=== PATIENT | female | born 1995 | race Caucasian/White ===

== ENCOUNTER 2021-05-04 08:30 | Emergency (ER) | payer OTHER, SELFPAY ==
--- NOTE | ~2021-05-04 | XR_ITS ---
XR toe 5th LT min 2V 05/04/2021 08:57 INDICATION: Left toe pain after injury PROCEDURE: 4 views left fifth toe COMPARISON: No prior studies for comparison. FINDINGS: Fracture, dislocation or subluxation is not identified. The soft tissues appear within norm al limits. No foreign bodies are identified. IMPRESSION: 1: NO ACUTE BONE OR JOINT ABNORMALITY IDENTIFIED. Reviewed, dictated and finalized at [facility] [employer]
[2021-05-04 08:41] VITALS: BP 121/68; PULSE 80; RESP 16; TEMP 36.9; O2SAT 99
[2021-05-04 08:59] VITALS: BP 100/65; PULSE 72; RESP 18; TEMP 36.9; O2SAT 100
[2021-05-04 09:05] VITALS: BP 100/65; PULSE 73; O2SAT 100
--- NOTE | 2021-05-04 09:17 | ED.LOWEXIN ---
HPI - Extremity Injury (Lower) General Chief Complaint: Extremity Injury, Lower Stated Complaint: toe pain Time Seen by Provider: 05/04/21 09:13 Source: patient Mode of arrival: ambulatory Limitations: no limitations History of Present Illness HPI Narrative: Kicked left small toe at the corner of a door accidentally yesterday. No other injuries Related Data Allergies Allergy/AdvReac Type Severity Reaction Status Date / Time No Known Allergies Allergy Unverified 03/13/15 13:35 Review of Systems Review of Systems: CONSTITUTIONAL: Denies fever, chills, or sweats. EYES: Denies visual changes, redness, or discharge. ENT: Denies rhinorrhea, congestion, sore throat, or otalgia. CARDIOVASCULAR: Denies chest pain, palpitations, or edema. RESPIRATORY: Denies cough or dyspnea. GASTROINTESTINAL: Denies abdominal pain, nausea, vomiting, or diarrhea. GENITOURINARY: Denies dysuria or hematuria. SKIN: Denies rash or itching. MUSCULOSKELETAL: Denies back pain, joint pain, or myalgia. NEUROLOGIC: Denies headache, numbness, or weakness. PSYCHIATRIC: Denies anxiety or depression. PMFSH Social History Social History Smoking status: Never smoker Alcohol intake: never Exam Narrative: General appearance: Well-developed, well-nourished Skin: Normal color Vascular: Normal peripheral pulses, normal capillary refill. Musculoskeletal: Left small toe is bruised, slightly swelling, no deformity, diffusely tender to touch Neurologic: Alert and oriented ?3, [employer] is normal as tested, no gross motor deficit Course Course Emergency Course: Stable Vital Signs Vital signs: Vital Signs Temperature 36.9 C 05/04/21 08:41 Pulse Rate 80 05/04/21 08:41 Respiratory Rate 16 05/04/21 08:41 Blood Pressure 121/68 05/04/21 08:41 Pulse Oximetry 99 05/04/21 08:41 Temperature 36.9 C 05/04/21 08:59 Pulse Rate 73 05/04/21 09:05 Respiratory Rate 18 05/04/21 08:59 Blood Pressure 100/65 05/04/21 09:05 Pulse Oximetry 100 05/04/21 09:05 MDM - Extremity Injury (Lower) MDM Narrative Medical decision making narrative: Left small toe contusion Critical Care Time Critical Care Time Critical Care Time: No Discharge Plan Discharge Clinical Impression: Contusion of small toe of left foot Patient Disposition: Home, Self-Care Condition: Stable Instructions: Antibiotic Form Additional Instructions: Return if symptoms are worsening , call your family physician for appointment, take Tylenol as as needed for aches and pain, continue home medications., Keep left foot elevated, do not put weight on the left foot, take Tylenol ibuprofen as needed for pain Follow-up/Referrals: PHYSICIAN,PLASTER DIE MAKER [Primary Care Provider] - Hemal Chin MD [Physician] -
--- NOTE | 2021-05-04 09:45 | PC.NURSE ---
Pt left without post op boot after informed her there is no fracture on xray and x- ray WNL, pt left without discharge paper work
== END 2021-05-04 09:45 | disposition home or self-care (01) ==
PROVIDERS: Emergency Provider Emergency Medicine
DX: S90.122A Contusion of left lesser toe(s) without damage to nail, initial encounter (principal); W22.8XXA Striking against or struck by other objects, initial encounter
CPT/HCPCS: 73660; 99283

== ENCOUNTER 2021-06-09 16:46 | Emergency (ER) | payer OTHER, SELFPAY ==
[2021-06-09 16:51] VITALS: BP 126/69; PULSE 92; RESP 18; TEMP 36.6; O2SAT 100
--- NOTE | 2021-06-09 17:48 | PC.NURSE ---
Patient walked out of ED without difficulty and in no distress.
== END 2021-06-10 04:29 | disposition left against medical advice (07) ==
DX: Z53.21 Procedure and treatment not carried out due to patient leaving prior to being seen by health care provider (principal)
CPT/HCPCS: 99199

== ENCOUNTER 2021-08-22 10:24 | Emergency (ER) | payer OTHER, SELFPAY ==
--- NOTE | ~2021-08-22 | CT_ITS ---
EXAMINATION: CT abdomen pelvis w con DATE: 08/22/2021 12:35 INDICATION: Right lower quadrant abdominal pain, nausea and vomiting for 3 days TECHNIQUE: Computed tomography (CT) of the abdomen and pelvis was performed with 100 CC Omnipaque 350 intravenous contrast. Automated exposure control and iterative reconstruction technique were employe d. Exam dose: 417.23 mGy-cm total exam DLP. COMPARISON: None. FINDINGS: The lung bases are clear. Normal heart size. No pericardial or pleural effusion. 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 The liver, gallbladder, bile ducts, pancreas, pancreatic duct and spleen are unremarkable. Normal morphology of the adrenal glands. There is a horseshoe kidney 8 mm cyst at the lower pole of the right kidney near the isthmus. Normal caliber of the abdominal aorta. No intraperitoneal or retroperitoneal or pelvic mass lesion or adenopathy or ascites. There is diffuse thickening of the urinary bladder wall, which may be due to under distention versus infection. The uterus and adnexal areas are unremarkable. Normal appendix. No bowel obstruction. No intraperitoneal free air. Included skeletal structures are unremarkable. IMPRESSION: Horseshoe kidney 8 mm right renal cyst Diffuse thickening of the urinary bladder wall which may be due to underdistention or cystitis Reviewed, dictated and finalized at [facility] Reviewed, dictated and finalized at [facility]EARCH[facility] IMPRESSION: Horseshoe kidney 8 mm right renal cyst Diffuse thickening of the urinary bladder wall which may be due to underdistent ion or cystitis
[2021-08-22 10:45] VITALS: BP 159/96; PULSE 69; RESP 18; TEMP 36.6; O2SAT 100
--- NOTE | 2021-08-22 10:52 | ECG_ITS ---
Measurements Intervals [place] Rate: 60 P: 43 IN: 169 QRS: 63 QRSD: 92 T: 11 QT: 422 QTc: 422 Interpretive Statements SINUS RHYTHM WITH SINUS ARRHYTHMIA NONSPECIFIC T-WAVE ABNORMALITY. ABNORMAL ECG NO PREVIOUS ECG AVAILABLE FOR COMPARISON Electronically Signed On 08-22-2021 14:03:23 [employer] MACHINE OPERATOR by Everette Martinez M.D.
--- NOTE | 2021-08-22 10:58 | PC.NURSE ---
while triaging pt, pt's eyes rolled back. sternal rubbed pt and she came back to. performed EKG. EDP aware of situation. pt taken back to room H3.
[2021-08-22 11:35] LABS: Basophils Percent Auto 0.4 % (0.2-1.2); Eosinophils Percent Auto 0.3 % (0-4.4); Hematocrit 38.6 % (37.0-47.0); Hemoglobin 13.4 g/dL (12.0-15.0); Immature Granulocyte Absolute 0.05 K/mm3 (0.00-0.031); Immature Granulocyte Percent A 0.5 % (0-0.5); Lymphocytes Absolute Auto 1.85 K/mm3 (0.9-3.2); Lymphocytes Percent Auto 17.3 % (18.3-44.2); Mean Corpuscular HGB Conc 34.7 g/dl (32-36); Mean Corpuscular Hemoglobin 30.5 pg (26-34); Mean Corpuscular Volume 87.7 fl (80-100); Mean Platelet Volume 10.3 fl (7.4-10.4); Monocytes Absolute Auto 0.6 K/mm3 (0.1-0.6); Monocytes Percent Auto 5.6 % (2.6-8.5); Neutrophils Absolute Auto 8.1 K/mm3 (1.3-6.7); Neutrophils Percent Auto 75.9 % (45.5-73.1); Platelet Count Result 267 k/mm3 (150-375); Red Cell Distribution Width 13.8 % (11.5-14.5); White Blood Count 10.7 K/mm3 (4.5-10.0)
[2021-08-22 11:40] LABS: Alanine Aminotransferase 16 U/L (4-35); Albumin Level 4.6 g/dL (3.5-5.1); Alkaline Phosphatase 78 U/L (38-126); Anion Gap 4 mmol/L (8-16); Aspartate Amino Transferase 27 U/L (14-36); Bilirubin,Total 0.5 mg/dL (0.2-1.3); Blood Urea Nitrogen 7 mg/dL (7-17); Calcium 9.3 mg/dL (8.4-10.2); Carbon Dioxide 22 mmol/L (22-30); Chloride 107 mmol/L (98-107); Estimated CRCL calculation 108 ml/min; Estimated Glomerular Filt Rate > 60; Glucose 97 mg/dL (65-110); Lipase 101 U/L (23-300); Potassium 3.2 mmol/L (3.4-5.0); Sodium 133 mmol/L (137-145)
[2021-08-22 11:54] LABS: Add Urine Microscopic? YES; Appearance Urine Clear (Clear); Bacteria Urine Trace /hpf; Bilirubin Urine Negative (Negative); Blood Urine Negative (Negative); Color Urine Yellow (Yellow); Glucose Urine UA Negative (Negative); Ketones Urine 1+ mg/dL (Negative); Leukocyte Esterase Ur 1+ LEU/UL (Negative); Mucus Urine Few /lpf; Nitrate Urine Negative (Negative); Protein Urine 1+ mg/dL (Negative); Specific Grav Ur 1.024 (1.001-1.035); Squamous Epithelial Cell Urine Many /hpf (Few); WBC Urine 31-50 /hpf
[2021-08-22] MEDS: SODIUM CHLORIDE 0.9% IV 1,000 ML 999 ML IV CONT (12:47)
[2021-08-22] MEDS: ONDANSETRON INJ 4 MG/2 ML VIAL IV PUSH (12:48)
--- NOTE | 2021-08-22 12:53 | ED.ABDPAIN ---
HPI - Abdominal Pain General Chief Complaint: Abdominal Pain Stated Complaint: vomiting/abd pain Time Seen by Provider: 08/22/21 11:56 History of Present Illness HPI narrative: Patient is a 26-year-old female who presents ER with with intermittent abdominal pain as well as nausea and vomiting. Ongoing for 3 days. Patient reports discomfort is mainly in the lower abdomen midline. No radiation but she also has discomfort in her upper abdomen especially when she vomits. No fevers or chills or sweats. Denies urinary frequency urgency or dysuria. No diarrhea. She has taken some Pepto-Bismol to help with her discomfort but she recently vomited that up. No known sick contacts. Related Data Allergies Allergy/AdvReac Type Severity Reaction Status Date / Time No Known Allergies Allergy Verified 08/22/21 11:08 Review of Systems Review of Systems: All systems reviewed & are unremarkable except as noted in HPI and below Constitutional: Constitutional: Denies chills, Reports fatigue and Denies fever(s) ENT: Denies nasal congestion and Denies sore throat Cardiovascular: Cardiovascular: Denies chest pain and Denies rapid heart rate Respiratory: Respiratory: Denies cough and Denies dyspnea Gastrointestinal: Gastrointestinal: Reports abdominal pain, Denies diarrhea, Reports nausea and Reports vomiting Genitourinary: Genitourinary: Denies hematuria, Denies nocturia, Denies dysuria and Denies flank pain PMFSH Past Medical History Medical History (Updated 08/22/21 @ 13:57 by Deandre Jalloh MD) Healthy female adult Surgical History Surgical History (Updated 08/22/21 @ 13:00 by Deandre Jalloh MD) No history of previous surgery Social History Social History (Updated 08/22/21 @ 13:01 by Deandre Jalloh MD) Smoking status: Never smoker Exam Narrative: GENERAL: Well-appearing, well-nourished, and in no acute distress. HEAD: Normocephalic, atraumatic. ENT: Mucous membranes moist. CHEST: Clear to auscultation. No respiratory distress. HEART: Regular rate and rhythm. Normal peripheral pulses. ABDOMEN: Soft, tender palpation right lower quadrant without guarding, nondistended, normal active bowel sounds. EXTREMITIES: Normal range of motion. No edema. SKIN: Warm, dry, no rash. NEURO: Alert and oriented x3. PSYCH: Normal mood and affect. Course Course Emergency Course: Patient informed results. Discharge home with antibiotics. Vital Signs Vital signs: Vital Signs Temperature 97.8 F 08/22/21 10:45 Pulse Rate 69 08/22/21 10:45 Respiratory Rate 18 08/22/21 10:45 Blood Pressure 159/96 H 08/22/21 10:45 Pulse Oximetry 100 08/22/21 10:45 Temperature 97.8 F 08/22/21 10:45 Pulse Rate 61 08/22/21 12:55 Respiratory Rate 14 08/22/21 12:55 Blood Pressure 131/80 08/22/21 12:55 Pulse Oximetry 100 08/22/21 12:55 MDM - Abdominal Pain Lab Data Result diagrams: 08/22/21 11:17 08/22/21 11:17 Labs: Lab Results 08/22/21 08/22/21 08/22/21 Range/Units 11:17 11:17 11:36 WBC 10.7 H (4.5-10.0) K/mm3 RBC 4.40 (4.2-5.4) M/mm3 Hgb 13.4 (12.0-15.0) g/dL Hct 38.6 (37.0-47.0) % MCV 87.7 (80-100) fl MCH 30.5 (26-34) pg MCHC 34.7 (32-36) g/dl RDW 13.8 (11.5-14.5) % Plt Count 267 (150-375) k/mm3 MPV 10.3 (7.4-10.4) fl Immature Gran % (Auto) 0.5 (0-0.5) % Neut % (Auto) 75.9 H (45.5-73.1) % Lymph % (Auto) 17.3 L (18.3-44.2) % [place] % (Auto) 5.6 (2.6-8.5) % Eos % (Auto) 0.3 (0-4.4) % Baso % (Auto) 0.4 (0.2-1.2) % Lymph # (Auto) 1.85 (0.9-3.2) K/mm3 [place] # (Auto) 0.6 (0.1-0.6) K/mm3 Eos # (Auto) 0.0 (0-0.3) K/mm3 Baso # (Auto) 0.0 (0.0-0.1) K/mm3 Abs Immat Gran (auto) 0.05 H (0.00-0.031) K/mm3 Absolute Neuts (auto) 8.1 H (1.3-6.7) K/mm3 Absolute Nucleated RBC 0.0 (0.0-0.012) K/mm3 Nucleated RBC % 0.0 (0.0-0.2) % Sodium 133 L (137-145)
[2021-08-22 12:55] VITALS: BP 131/80; PULSE 61; RESP 14; O2SAT 100
[2021-08-22 13:57] VITALS: BP 132/84; PULSE 70; RESP 18; TEMP 36.6; O2SAT 99
[2021-08-22] MEDS: HYDROcodone/acetaminophen (*CRX) 5-325 MG TABLET 1 TAB PO (13:57)
== END 2021-08-22 14:11 | disposition home or self-care (01) ==
PROVIDERS: Emergency Medicine; Emergency Provider Emergency Medicine
DX: N39.0 Urinary tract infection, site not specified (principal); N28.1 Cyst of kidney, acquired; R93.41 Abnormal radiologic findings on diagnostic imaging of renal pelvis, ureter, or bladder
CPT/HCPCS: 36415; 74177; 80053; 81001; 81025; 83690; 85025; 87077; 87086; 87088; 93005; 96361; 96374; 99284; A9270; J2405; J7030; Q9967